=== PATIENT | female | born 1935 | race Caucasian/White ===

== ENCOUNTER 2024-10-30 17:39 | Emergency (ER) | payer MEDICARE, OTHER, SELFPAY ==
[2024-10-30 17:43] VITALS: BP 142/93
[2024-10-30] MEDS: TYLENOL 1000 MG PO (20:50)
--- NOTE | 2024-10-30 21:22 | ED.GENMED ---
History of Present Illness
General
Chief Complaint: Fall
Source: patient
Exam Limitations: none
Time Seen by Provider: 10/30/24 19:29
Nursing documentation reviewed up to this point in time: agreed with
History of Present Illness
History of Present Illness:
The patient is a pleasant 88-year-old female with a past medical history of A-fib on [facility] who presents after a trip and fall over a dog just prior to arrival. Patient reports that she fell directly onto her face. Patient presents with a
laceration of her forehead and bruising of the bridge of her nose. There is no loss consciousness. Patient complains of a mild headache but denies any severe headache. She denies dizziness, nausea and vomiting. Patient reports she has some
soreness of her neck. Patient reports she was able to get up and walk since the injury. Patient reports she initially had a nosebleed but her friends put packing in her nose and the bleeding has stopped. Patient denies any hip or pelvic pain.
Past History
Past History
ED Past Medical History: Arrthythmia
ED Past Surgical History: Other
Social History
Tobacco: Non-smoker
Alcohol: Other
Drug: None
Personal: Other
Living: with family
Employment: Other
Family History
Family History: Other
Review of Systems
Review of Systems
Allergies reviewed?: Yes
All Other Systems: ROS reviewed and negative except as documented in HPI and ROS
Constitutional: Reports no symptoms
EENT: Reports other (Swelling and pain of bridge of nose. Nosebleed which is now gone)
Respiratory: Reports no symptoms
Cardiac: Reports no symptoms
ABD/GI: Reports no symptoms
: Reports no symptoms
Musculoskeletal: Reports no symptoms
Skin: Reports other
Neurological: Reports headache (Mild headache)
Endocrine: Reports no symptoms
Hematologic/Lymphatic: Reports no symptoms
Psychiatric: Reports no symptoms
Phy Exam
Physical Exam
Physical Exam:
Physical Exam
General: no apparent distress, not acutely ill, smiling, conversational
Neck: supple. No C-spine tenderness, swelling of mid upper lip. 0.5 cm superficial laceration of inner mucosal aspect of mid upper lip
Heart: s1/s2 regular rate and rhythm, no vertebral spine tenderness. No chest wall tenderness
Lungs: no acute respiratory distress. clear bilaterally
Abdomen: Soft, nontender
Neuro: alert and oriented. no focal neurological deficits. eomi. 5 out of 5 strength in all extremities.
Skin: 3 cm superficial horizontally aligned laceration across frontal scalp area
Psychiatric: well kept. interactive and cooperative
Extremities: No edema. No deformity, swelling or tenderness of upper and lower extremities. Nontender pelvis and hips
Course
Orders/Labs/Results
Orders:
Orders
10/30/24 17:46
[address] wo Contrast CT [CT Facial Bones W/o Iv Contras] Urgent
Comment:
Reason For Exam: facial pain
10/30/24 17:47
CT Head W/o Iv Contrast Urgent
Comment:
Reason For Exam: fall on eliquis
10/30/24 20:36
Acetaminophen [Tylenol] 1,000 mg PO NOW STA
Vital Signs
Initial and Last Documented VS:
Initial Vital Signs
Temp Pulse Resp BP Pulse Ox
97.5 F 88 16 142/93 99
10/30/24 17:43 10/30/24 17:43 10/30/24 17:43 10/30/24 17:43 10/30/24 17:43
Last Documented Vital Signs
Temp Pulse Resp BP Pulse Ox
97.5 F 88 16 142/93 99
10/30/24 17:43 10/30/24 17:43 10/30/24 17:43 10/30/24 17:43 10/30/24 17:43
Procedures
Laceration Closure
Middle Temporal:
Status of Wound: clean
Size of Wound in cm: 3
Preparation: cleaned with saline
Type of Closure: Dermabond-skin glue and other (Dermabond with Steri-Strips)
Additional information:
This procedure note is related to the patient's forehead laceration
MDM/Problems Addressed
Differential Diagnosis Includes:
Intracranial hematoma, closed head injury, C-spine trauma, nasal bone fracture
MDM/Problems Addressed:
Patient presents with mild acute headache, forehead laceration, forehead hematoma, and bruising and pain of bridge of nose after a trip and fall
Chronic conditions affecting care:
Patient is at increased risk of intracranial bleed due to her being on Eliquis because she has A-fib
Chronic conditions affecting care: Arrhythmia
Acute Exacerbation and/or Progression of Chronic Illness:
Patient is mildly hypertensive, however, patient appears anxious and is in the ED
Acute Exacerbation and/or Progression of Chronic Illness: HTN
*Radiology
Radiology exam reviewed: radiology read reviewed
*Pulse Oximetry
Patient hypoxic: no
*EKG
Interpreted by ED Provider?: NA
*[employer] Member Interpretation
Rate: [employer]- N/A
*Critical Care Note
Total Time (30-74mins, 75-104mins- exclusive of procedures): Not Applicable
Data Reviewed
Source: patient
Patient Management
Social determinants of health affecting care: Living situation and Strong social support
Escalation/DeEscalation of care consider admission/obs:
Patient appears very well and comfortable. She has had no dizziness, light sensitivity or nausea. She could stay with her friends and family tonight and be watched. She has no active bleeding in her nose, just clots.
ED Attending Note
-
Portions of this chart may have been created with voice recognition software.� Occasional wrong word or��sound alike� substitutions may have occurred due to the inherent limitations of voice recognition software.
Discharge Plan
Departure
Patient Disposition: Home (Routine Discharge)
Date of Disposition: 10/30/24
Time of Disposition: 20:34
Patient with high blood pressure during this ER visit?: Yes
Condition: Good
Covid-19: Not Applicable
Discharge Problem:
Fracture of nasal bone, Closed head injury, Forehead laceration, Contusion of forehead, laceration of mucosal surface of lip
Instructions: Laceration Repair With Glue (DC), Head Injury in Adults (DC), Contusion (DC), Nose Fracture ED, Head injury observation in adults, BLOOD PRESSURE
Referrals:
JIA, JENNIFER [Other]
Activity Restrictions/Additional Instructions:
Please make sure you are monitored by someone until 11:00 PM this evening for any severe headache, vomiting or lethargy. You can then go to sleep at 11:00 PM for the night as long as you feel okay.
Please keep your forehead wound dry for about 48 hours. After that, you can gently get it wet but do not scrub the area. Allow the Steri-Strips to peel off on their own.
Eat softer foods for the next 3 to 4 days and gargle water after eating to keep your mouth clean
Interventions
Interventions:
*Risk Screen - Suicide Last Done: 10/30/24 21:14
*General Assessment Last Done: 10/30/24 21:14
*Neglect/Abuse Screening Last Done: 10/30/24 21:14
ED- Fall Risk Assessment Last Done: 10/30/24 18:50
*Nursing Disposition Last Done: 10/30/24 21:14
ED-Musculoskeletal Assessment Last Done: 10/30/24 18:50
ED- Neurological Assessment Last Done: 10/30/24 18:50
ED-Skin Assessment Last Done: 10/30/24 18:50
Discharge Date and Time
Discharge Date/Time: 10/30/24 21:15
Print Language: TRISTANIAN
== END 2024-10-30 21:15 | disposition home or self-care (01) ==
LOC: EMR 17:39
PROVIDERS: EMERGENCY PHYSICIAN Emergency Medicine
DX: S02.2XXA Fracture of nasal bones, initial encounter for closed fracture (principal); S09.90XA Unspecified injury of head, initial encounter; S01.81XA Laceration without foreign body of other part of head, initial encounter; S01.511A Laceration without foreign body of lip, initial encounter; W01.0XXA Fall on same level from slipping, tripping and stumbling without subsequent striking against object, initial encounter; I10 Essential (primary) hypertension; I48.91 Unspecified atrial fibrillation; Z79.01 Long term (current) use of anticoagulants
CPT/HCPCS: 99284; 12002; 70450; 70486